=== PATIENT | male | born 1960 | race Caucasian/White ===

== ENCOUNTER 2023-04-06 15:18 | Outpatient (CLI) | payer BC ==
--- NOTE | 2023-04-06 20:05 | XRAY Report ---
PROCEDURE: Foot 3 View LT INDICATIONS: LEFT FOOT PAIN TECHNIQUE: 3 views of the foot were acquired. COMPARISON: None. FINDINGS: Bones: No acute fractures or dislocations. No suspicious bony lesions. Scattered degenerative bautista nges are seen at the interphalangeal joints of the toes. Soft tissues: No suspicious soft tissue calcifications or masses. IMPRESSION: No acute osseous abnormality. If symptoms persist or there is continued clinical concern, further anayeli luation with MRI or CT may be helpful. Reviewed by: Hector Barron MD on 04/06/2023 8:04 PM PST Approved by: Hector Barron MD on 04/06/2023 8:04 PM PST Station ID: [id number]
--- NOTE | 2023-04-06 20:08 | XRAY Report ---
PROCEDURE: Ankle 3 View LT INDICATIONS: LEFT ANKLE PAIN TECHNIQUE: 3 views of the ankle were acquired. COMPARISON: None. FINDINGS: Bones: Subtle subchondral lucency at the medial talar dome may represent degenerative subchondral cy stic changes or a likely chronic osteochondral lesion. No suspicious bony lesions. Small posterior calcaneal enthesophyte. Soft tissues: No suspicious soft tissue calcifications. IMPRESSION: Suspected chronic osteochondral lesion at the medial talar dome. No acute osseous abnormality. MRI co uld be performed for further evaluation if indicated clinically. Reviewed by: Hector Barron MD on 04/06/2023 8:07 PM PST Approved by: Hector Barron MD on 04/06/2023 8:07 PM PST Station ID: [id number]
== END 2023-04-06 15:19 | disposition home or self-care (01) ==
LOC: DI 15:18
PROVIDERS: ATTEND Podiatrist
DX: M79.672 Pain in left foot (principal); M25.572 Pain in left ankle and joints of left foot

== ENCOUNTER 2023-05-10 10:14 | Outpatient (CLI) | payer BC ==
--- NOTE | 2023-05-10 16:35 | MRI Report ---
PROCEDURE: ANKLE WO - LT INDICATIONS: LEFT ANKLE PAIN TECHNIQUE: Noncontrast sagittal T1 spin echo and T2 fast spin echo with fat saturation, axial proton density fas t spin echo and T2 fast spin echo with fat saturation, coronal T1 spin echo and T2 fast spin echo wit h fat saturation through the ankle/hindfoot. COMPARISON: Ankle radiograph dated 04/06/2023. FINDINGS: Image quality: Excellent. Bones and joints: There is no significant joint effusion. No intra-articular loose bodies. Subcortica l cystic areas are noted involving medial weightbearing portion of talar dome with surrounding edema consistent with a osteochondral injuries measures up to 5 x 7 x 12 mm in size. No other area of abnor mal marrow signal. Mild midfoot and hindfoot joint osteoarthritic changes are seen. Medial structures: The posterior tibialis tendon is thickened with fluid distending tendon sheath at the level of mid to distal talus and talonavicular joint. The flexor digitorum longus, and flexor machuca llucis longus tendons are intact. The posterior tibial neurovascular bundle appears normal within th e tarsal tunnel, without extrinsic mass effect. The deltoid ligament and spring ligament are mildly thickened. Lateral structures: The anterior talofibular, calcaneofibular, and posterior talofibular ligaments a ppear mildly thickened with intrasubstance T2 hyperintense signal. More superiorly, the anterior and posterior tibiofibular ligaments appear normal, as is the intermalleolar ligament. The tibiofibular syndesmosis is normal in width at 2 mm or less. The peroneus brevis tendon is intact. The peroneus longus tendon is thickened with small amount of fluid distending tendon sheath at the level of latera l malleolus tip extending to the level of calcaneocuboid joint. The sinus tarsi demonstrates normal f atty signal, without edema, fibrosis, or cyst formation. Visualized sinus tarsi components (cervical ligament, interosseous talocalcaneal ligament, roots of the inferior extensor retinaculum) appear no rmal. Anterior structures: The tibialis anterior, extensor hallucis longus, and extensor digitorum longus tendons appear intact. Posterior and plantar structures: Achilles tendon is intact. Medial and lateral bands of the planta r fascia are of normal thickness. No abductor digiti quinti muscle atrophy to suggest Segura neuropa thy. IMPRESSION: 1. Mild midfoot and hindfoot joint osteoarthritis. No fracture or dislocation. Osteochondral injuries are noted involving medial weightbearing portion of talar dome. No significant joint effusion. 2. Low-grade tenosynovitis involving posterior tibialis tendon at the level of mid to distal talus an d talonavicular joint. 3. Low to moderate grade tenosynovitis involving peroneus longus tendon at the level of lateral malle olus tip extending to the level of calcaneocuboid joint. 4. Low-grade medial ankle ligament sprain. 4. Low-grade sprain/intrasubstance partial thickness tear involving anterior and posterior talofibula r ligaments and calcaneofibular ligament. Reviewed by: Kingston Mar MD on 05/10/2023 4:33 PM PST Approved by: Kingston Mar MD on 05/10/2023 4:33 PM PST Station ID: [id number]
== END 2023-05-10 10:15 | disposition home or self-care (01) ==
LOC: DI 10:14
PROVIDERS: ATTEND Podiatrist
DX: M93.272 Osteochondritis dissecans, left ankle and joints of left foot (principal); M19.072 Primary osteoarthritis, left ankle and foot; M65.9 Synovitis and tenosynovitis, unspecified; S93.492A Sprain of other ligament of left ankle, initial encounter; S93.412A Sprain of calcaneofibular ligament of left ankle, initial encounter

== ENCOUNTER 2024-10-30 13:14 | Observation (INO) ==
[2024-10-30 14:40] LABS: BASOPHILS % (AUTO) 0.3 %; EOSINOPHILS % (AUTO) 0.3 %; HCT - HEMATOCRIT 44.7 % (42.0-52.0); HGB - HEMOGLOBIN 15.9 g/dL (14.0-18.0); LYMPHOCYTES % (AUTO) 10.9 %; MEAN CORPUSCULAR HGB CONC 35.6 g/dL (32.0-36.0); MEAN CORPUSCULAR VOLUME 78.8 fL (80.0-94.0); MEAN PLATELET VOLUME 8.1 fL (7.4-11.4); MONOCYTES % (AUTO) 10.1 %; NEUTROPHILS % (AUTO) 77.2 %; PLT - PLATELET COUNT 451 10^3/uL (130-450); RED BLOOD COUNT 5.67 10^6/uL (4.70-6.10); WHITE BLOOD COUNT 14.4 x10^3/uL (4.8-10.8)
[2024-10-30 14:48] LABS: ABNORMAL LYMPHS % (MANUAL) 0 %; BAND NEUTROPHILS % (MANUAL) 0 %
[2024-10-30 14:53] LABS: ALBUMIN 4.7 g/dL (3.2-5.5); ALBUMIN/GLOBULIN RATIO 1.6 (1.0-2.2); BILIRUBIN,TOTAL 0.7 mg/dL (0.2-1.0); CALCIUM 9.3 mg/dL (8.5-10.3); POTASSIUM 4.1 mmol/L (3.5-4.5); TOTAL PROTEIN 7.7 g/dL (6.4-8.9)
[2024-10-30 15:05] LABS: DIFFERENTIAL COMMENT MANUAL DIFFERENTIAL; LYMPHOCYTES # (MANUAL) 1.9 10^3/uL (1.5-3.5); LYMPHOCYTES % (MANUAL) 11 %; MONOCYTES # (MANUAL) 1.4 10^3/uL (0.0-1.0); NEUTROPHILS # (MANUAL) 11.1 10^3/uL (1.5-6.6); PLATELET ESTIMATE, MANUAL NORMAL (130-450,000) (NORMAL); PLATELET MORPHOLOGY NORMAL APPEARANCE (NORMAL); RBC MORPHOLOGY (MULTIPLE) NORMAL APPEARANCE (NORMAL); REACTIVE LYMPHS % (MANUAL) 2 %
--- NOTE | 2024-10-30 15:55 | ED Physician Documentation ---
PD HPI NVD Stated complaint Stated Complaint: DIARRHEA Chief complaint Chief Complaint: Abd Pain History obtained from History obtained from: Patient and Family History of Present Illness Timing - onset: How many weeks ago (2) Timing - duration: Weeks (2) Timing - details: Abrupt onset and Still present Associated symptoms: Abdominal pain (intermittent cramping), Loss of appetite and Weight loss; No Fever, Near syncope / syncope or Dysuria Contributing factors: Other (chemotherapy 3 weeks ago (immunologic).); No Sick contact Similar symptoms before: Has not had sx before Recently seen: Clinic (chemotherapy 2 weeks ago, third dose of it (q month) without similar symptoms in prior doses. ) Meds/Allgy Home Medications Ambulatory Orders Medication Instructions Recorded Confirmed acetaminophen 500 mg tablet 500 mg PO PRN 10/31/2404/16 (Tylenol Extra Strength) albuterol sulfate 90 mcg/actuation 2 inh inhalation Q4 -6H PRN 10/31/24 10/31/24 aerosol inhaler (Ventolin HFA) shortness of breath or wheezing beclomethasone dipropionate 40 1 inh inhalation BID WA N shortness 10/31/24 10/31/24 mcg/actuation HFA breath activated of breath or wheezi ng aerosol (Qvar RediHaler) diphenoxylate-atropine 2.5 1 tab PO QID PRN diarrhea 0 10/31/24 10/31/24 mg-0.025 mg tablet fluticasone propionate 50 4 spray intranasal DAILY 04/1610/31/24 mcg/actuation nasal spray,suspension gabapentin 300 mg capsule 300 mg PO QPM 10/31/2410/31 lisinopril 20 1 tab PO BID 10/31/24 mg-hydrochlorothiazide 12.5 mg tablet multivitamin 1 tab PO BID 10/31/24 omega-3 fatty acids 500 mg PO DAILY 10/31/2404/16 ondansetron 4 mg disintegrating 4 - 8 mg PO Q8H PRN na usea and 10/31/24 10/31/24 tablet vomiting rosuvastatin 10 mg tablet 10 mg PO QPM 10/31/24 tadalafil 2.5 mg tablet 2.5 mg PO DAILY PRN sexual a ctivity 10/31/24 10/31/24 vitamin K2 40 mcg tablet 40 mcg PO DAILY 10/31/2404/16 Allergies Allergies Allergy/AdvReac Type Severity Reaction Status Date / Time atenolol Allergy Intermediate Respiratory Verified 10/31/24 11:28 Gadolinium-Containing Allergy Intermediate Hives Verified 10/31/24 11:28 Contrast Medi Sulfa (Sulfonamide Allergy Mild Rash Verified 10/31/24 11:28 Antibiotics) PFSH Active Problems All Active Problems (Updated 10/30/24 @ 19:19 by Araceli Bishop RN) Diarrhea (Acute) Acute hyponatremia (Acute) Medical History Medical History (Updated 10/30/24 @ 19:19 by Araceli Bishop RN) History of hypertension Melanoma Social History Social History (Updated 10/30/24 @ 19:20 by Araceli Bishop RN) Smoking Status: Former smoker If you are a former smoker, when did you quit? (Date/Year): 1982 Number of Years Smoked: 3 Do you dip or chew tobacco?: No Do you vape?: No Smoking Status Details: quit 1983 Relationship: Level: Independent Do you feel safe in your home environment?: Yes Suffered physical, verbal, emotional, or financial abuse?: No Exam Exam Vital Signs: Vital Signs x48h Temp Pulse Resp BP Pulse Ox 10/30/24 13:37 36.8 C 110 H 16 115/84 97 Constitutional normal general appearance, no apparent distress and average body habitus Neck/C-Spine supple and no meningeal signs Lymph no lymphadenopathy noted Respiratory breath sounds equal bilaterally and normal respiratory effort Cardiovascular normal heart rate noted, regular rhythm noted and no edema Gastrointestinal abdomen soft to palpation, tender to palpation (mild), (LLQ) and (periumbilical), nontender to percussion, nondistended and abnormal bowel sounds noted (hyperactive bowel sounds) Extremities normal to inspection, normal to palpation and no tenderness Neurology no focal motor deficit noted, no sensory deficits noted, speech normal, coordination normal and GCS 15 Psychiatry thought process abnormality noted (somewhat sluggish but still coherent and appropriate. ) and affect normal Results Vitals Vitals: Oxygen O2 Source Room air Labs Labs: Laboratory Tests 10/30/24 10/30/24 10/30/24 14:35 16:40 16:50 WBC 14.4 H RBC 5.67 Hgb 15.9 Hct 44.7 MCV 78.8 L MCH 28.0 MCHC 35.6 RDW 13.0 Plt Count 451 H MPV 8.1 Neut # (Auto) Not Reportable Lymph # (Auto) Not Reportable Phillips # (Auto) Not Reportable Eos # (Auto) Not Reportable Baso # (Auto) Not Reportable Absolute Nucleated RBC Not Reportable Total Counted 100 Band Neuts % (Manual) 0 Reactive Lymphs % (Man) 2 Abnorm Lymph % (Manual) 0 Nucleated RBC % Not Reportable Neutrophils # (Manual) 11.1 H Lymphocytes # (Manual) 1.9 Monocytes # (Manual) 1.4 H Eosinophils # (Manual) 0.0 Basophils # (Manual) 0.0 Differential Comment MANUAL DIFFERENTIAL Platelet Estimate NORMAL (130-450,000) Platelet Morphology NORMAL APPEARANCE RBC Morph Micro Appear NORMAL APPEARANCE Sodium 123 L Potassium 4.1 Chloride 93 L Carbon Dioxide 19 L Anion Gap 11.0 BUN 38 H Creatinine 1.0 Estimated GFR (MDRD) 75 L Glucose 161 H Lactic Acid Calcium 9.3 Phosphorus 4.8 Magnesium 2.2 Total Bilirubin 0.7 AST 15 ALT 21 Alkaline Phosphatase 64 Total Protein 7.7 Albumin 4.7 Globulin 3.0 Albumin/Globulin Ratio 1.6 Lipase 279 H Urine Color Urine Clarity Urine pH Ur Specific Roby Urine Protein Urine Glucose (UA) Urine Ketones Urine Occult Blood Urine Nitrite Urine Bilirubin Urine Urobilinogen Ur Leukocyte Esterase Urine RBC Urine WBC Urine WBC Clumps Ur Squamous Epith Cells Urine Bacteria Urine Casts Ur Microscopic Review Urine Culture Comments Stl C. cayetanensis PCR Not Detected Stool Rotavirus A PCR Not Detected Stl Adenov F 40/41 PCR Not Detected Stool Astrovirus (PCR) Not Detected Stool Campylobacter PCR Not Detected Stl C. diff Tox B Gene NEGATIVE Stl C. diff Tox A/B PCR Not Detected Stool Cryptosporidium PCR Not Detected Stl Sh Tox Pr E STEC PCR Not Detected Stool E coli O157 PCR Not applicable Stl Enterotoxigenic E PCR Not Detected Stool EPEC (PCR) Not Detected Stl E. histolytica PCR Not Detected Stool Giardia Lamblia PCR Not Detected Stl P. shigelloides PCR Not Detected Stool Salmonella PCR Not Detected Stool Sapovirus (PCR) Not Detected Stl Shigella/EIEC PCR Not Detected St Y.enterocolitica PCR Not Detected Stool Vibrio (PCR) Not Detected Stl Vibrio cholerae PCR Not Detected Stl Enteroaggr Ecoli PCR Not Detected Stl Norovirus GI/GII PCR Not Detected 10/30/24 10/30/24 19:10 20:39 WBC RBC Hgb Hct MCV MCH MCHC RDW Plt Count MPV Neut # (Auto) Lymph # (Auto) Phillips # (Auto) Eos # (Auto) Baso # (Auto) Absolute Nucleated RBC Total Counted Band Neuts % (Manual) Reactive Lymphs % (Man) Abnorm Lymph % (Manual) Nucleated RBC % Neutrophils # (Manual) Lymphocytes # (Manual) Monocytes # (Manual) Eosinophils # (Manual) Basophils # (Manual) Differential Comment Platelet Estimate Platelet Morphology RBC Morph Micro Appear Sodium Potassium Chloride Carbon Dioxide Anion Gap BUN Creatinine Estimated GFR (MDRD) Glucose Lactic Acid 1.5 Calcium Phosphorus Magnesium Total Bilirubin AST ALT Alkaline Phosphatase Total Protein Albumin Globulin Albumin/Globulin Ratio Lipase Urine Color DARK YELLOW Urine Clarity CLEAR Urine pH 6.0 Ur Specific Roby 1.025 Urine Protein 30 H Urine Glucose (UA) NEGATIVE Urine Ketones 15 H Urine Occult Blood NEGATIVE Urine Nitrite NEGATIVE Urine Bilirubin SMALL H Urine Urobilinogen 0.2 (NORMAL) Ur Leukocyte Esterase NEGATIVE Urine RBC None Seen Urine WBC 6-10 H Urine WBC Clumps PRESENT Ur Squamous Epith Cells FEW Squamous Urine Bacteria Rare Urine Casts 26-50 Hyaline Casts Ur Microscopic Review INDICATED Urine Culture Comments NOT INDICATED Stl C. cayetanensis PCR Stool Rotavirus A PCR Stl Adenov F 40/41 PCR Stool Astrovirus (PCR) Stool Campylobacter PCR Stl C. diff Tox B Gene Stl C. diff Tox A/B PCR Stool Cryptosporidium PCR Stl Sh Tox Pr E STEC PCR Stool E coli O157 PCR Stl Enterotoxigenic E PCR Stool EPEC (PCR) Stl E. histolytica PCR Stool Giardia Lamblia PCR Stl P. shigelloides PCR Stool Salmonella PCR Stool Sapovirus (PCR) Stl Shigella/EIEC PCR St Y.enterocolitica PCR Stool Vibrio (PCR) Stl Vibrio cholerae PCR Stl Enteroaggr Ecoli PCR Stl Norovirus GI/GII PCR Rads (name of study) abd pelvic/CT: Relevant Findings:: Final report received Interpretation: EXAM: [id number] CT/ABPEWO ([id number]) PROCEDURE: CT Abdomen/Pelvis WO INDICATIONS: abd cramping and diarrhea several days TECHNIQUE: A CT scan of the abdomen and pelvis was performed without the use of intravenous contrast. Images were recorded and evaluated at appropriate window settings. Reformats: coronal and sagittal. For radiation dose reduction, the following was used: automated exposure control, adjustment of mA and/or kV according to patient size. COMPARISON: None. Evaluation of the solid rectum organs is limited without IV contrast. FINDINGS: Image quality: Diagnostic. Lower chest: Several small pulmonary nodules. For example: -Right lower lobe 0.7 cm, (8/). -Left lower lobe 0.8 cm (/). No pleural effusion. Liver: No contour-deforming mass. Gallbladder: Distended. No calcified gallstones. No pericholecystic fluid seen. Biliary tree: No intrahepatic or extrahepatic dilation, accounting for age. Spleen: No splenomegaly. Pancreas: No pancreatic ductal dilation. No peripancreatic fluid collection. Adrenals: No adrenal nodule. Kidneys and ureters: No hydronephrosis. No kidney stones. No contour-deforming mass. Stomach, bowel and peritoneum: No gastric or small bowel dilation. No abnormal wall thickening. No pathologic free fluid. Liquid stool contents in the rectum and colon. The appendix is at the upper limits of normal. No periappendiceal inflammatory change. Lymph nodes: No central or retroperitoneal adenopathy. Vessels: No infrarenal aortic aneurysm. Mild calcified plaque. Reproductive organs: Unremarkable. Bladder: No abnormal bladder wall thickening. No calcified bladder stones. Pelvic lymph nodes: No adenopathy by size criteria. Bones: No aggressive osseous abnormality. Other: No significant ventral or inguinal hernia. IMPRESSION: 1. Liquid stool contents in the colon and rectum. This suggests diarrhea. 2. No small bowel obstruction. No free fluid or free air. 3. No kidney stones. No hydronephrosis. 4. Distended gallbladder. Reviewed by: Eddie Willson MD on 10/30/2024 7:48 PM PDT PD Medical Decision Making ED course Complexity details: reviewed results (sodium 123. CT showing no focal process (water in colon/intestines c/w diarrhea). ), considered differential (profuse diarrhea, with lightheaded and weak, some sluggish thought process. Check lytes, renal function, give IV fluids and antidiarrheals (has tried imodium and a day of lomotil without improvement). check c diff and PCR stool testing. ), d/w patient and d/w client development consultant (hospitalist team) ED course: has had diarrhea profusely with trying to maintain hydration with electrolytes and water. Cramping abd pain. post imunologic chemotherapy for his cancer 2 weeks ago. COuld be inflammatory effect of that causing diarrhea, versus infectious. Will check c diff and PCR stool testing. Meanwhile his fluid balance is off with lightehaded and weakness, and lytes are off with very low sodium 123, with last in his MyChart records from [facility] being 139 three weeks ago. Discharge Plan Discharge Patient Disposition: 67 [facility] DC/Xfer Condition: Stable Clinical Impression: Acute hyponatremia, Diarrhea Interventions: ED Admission Assessment Last Done: 10/30/24 22:24
[2024-10-30] MEDS ORDERED: iohexoL-300 100 ML VIAL ONE (16:38)
[2024-10-30 16:48] LABS: MAGNESIUM 2.2 mg/dL (1.7-2.3); PHOSPHORUS 4.8 mg/dL (2.5-5.0)
[2024-10-30 19:31] LABS: BILIRUBIN,URINE SMALL (NEGATIVE); GLUCOSE, URINE (UA) NEGATIVE (NEGATIVE); KETONES,URINE (UA) 15 mg/dL (NEGATIVE); LEUKOCYTE ESTERASE, URINE NEGATIVE (NEGATIVE); NITRITE,URINE NEGATIVE (NEGATIVE); OCCULT BLOOD,URINE NEGATIVE (NEGATIVE); PROTEIN,URINE 30 mg/dL (NEGATIVE); UROBILINOGEN,URINE 0.2 (NORMAL) E.U./dL (NORMAL)
[2024-10-30 19:36] LABS: CLARITY,URINE CLEAR (CLEAR)
[2024-10-30 19:43] LABS: BACTERIA,URINE Rare /HPF (None Seen); CASTS, URINE 26-50 Hyaline Casts /LPF; RBC,URINE None Seen /HPF (0-5); SQUAMOUS EPITHELIAL CELL,UR FEW Squamous (<= Few); WBC CLUMPS,URINE PRESENT
--- NOTE | 2024-10-30 19:50 | CT Report ---
PROCEDURE: CT Abdomen/Pelvis WO INDICATIONS: abd cramping and diarrhea several days TECHNIQUE: A CT scan of the abdomen and pelvis was performed without the use of intravenous contrast. Images were recorded and evaluated at appropriate window settings. Reformats: coronal and sagittal. For radiation dose reduction, the following was used: automated exposure control, adjustment of mA and/or kV according to patient size. COMPARISON: None. Evaluation of the solid rectum organs is limited without IV contrast. FINDINGS: Image quality: Diagnostic. Lower chest: Several small pulmonary nodules. For example: -Right lower lobe 0.7 cm, (8/26). -Left lower lobe 0.8 cm (8/). No pleural effusion. Liver: No contour-deforming mass. Gallbladder: Distended. No calcified gallstones. No pericholecystic fluid seen. Biliary tree: No intrahepatic or extrahepatic dilation, accounting for age. Spleen: No splenomegaly. Pancreas: No pancreatic ductal dilation. No peripancreatic fluid collection. Adrenals: No adrenal nodule. Kidneys and ureters: No hydronephrosis. No kidney stones. No contour-deforming mass. Stomach, bowel and peritoneum: No gastric or small bowel dilation. No abnormal wall thickening. No pathologic free fluid. Liquid stool contents in the rectum and colon. The appendix is at the upper limits of normal. No periappendiceal inflammatory change. Lymph nodes: No central or retroperitoneal adenopathy. Vessels: No infrarenal aortic aneurysm. Mild calcified plaque. Reproductive organs: Unremarkable. Bladder: No abnormal bladder wall thickening. No calcified bladder stones. Pelvic lymph nodes: No adenopathy by size criteria. Bones: No aggressive osseous abnormality. Other: No significant ventral or inguinal hernia. IMPRESSION: 1. Liquid stool contents in the colon and rectum. This suggests diarrhea. 2. No small bowel obstruction. No free fluid or free air. 3. No kidney stones. No hydronephrosis. 4. Distended gallbladder. Reviewed by: Eddie Willson MD on 10/30/2024 7:48 PM PDT Approved by: Eddie Willson MD on 10/30/2024 7:48 PM PDT Station ID: [id number]
[2024-10-30] MEDS: SODIUM CHLORIDE 0.9% 1,000 ML IV STA (19:56)
[2024-10-30] MEDS ORDERED: ONDANSETRON ODT 4 MG TABLET TL PRN (20:52)
[2024-10-30] MEDS ORDERED: SODIUM CHLORIDE FLUSH 0.9% 10 ML SYRINGE IVP PRN (20:52)
[2024-10-30] MEDS ORDERED: ONDANSETRON 4 MG/2 ML VIAL IVP PRN (20:52)
--- NOTE | 2024-10-30 21:01 | HISTORY & PHYSICAL EXAMINATION ---
Chief Complaint Chief Complaint Chief Complaint: Weakness, diarrhea History of Present Illness Admitted From Admitted From:: Home with History Obtained From History obtained from: Patient interview History of Present Illness HPI Comment/Other: 64-year-old male with history of melanoma undergoing immunologic therapy with last dose 3 weeks ago presents with diarrhea x 2 weeks. He reports intermittent cramping and greater than 10 pound weight loss in the past few weeks. He denies nausea/vomiting. No fevers, chills, dyspnea, syncope. Does report generalized weakness. In the ER, lab work was significant for sodium of 123, WBC 14.4, lipase 279. UA unremarkable, C. difficile toxin negative. CT abdomen/pelvis was performed which showed diarrhea, but no small bowel obstruction, no free fluid, no free air, kidney stones, hydronephrosis. It did show a distended gallbladder, But does not specify cholecystitis. No pancreatic ductal dilation and no peripancreatic fluid collection. Patient denies right upper quadrant abdominal pain. Hospitalist was contacted for admission for hyponatremia secondary to diarrhea Meds/Allgy Allergies Allergies Allergy/AdvReac Type Severity Reaction Status Date / Time atenolol Allergy Intermediate Respiratory Verified 10/30/24 13:37 Gadolinium-Containing Allergy Mild Rash Verified 10/30/24 13:37 Contrast Medi Sulfa (Sulfonamide Allergy Mild Rash Verified 10/30/24 13:37 Antibiotics) PFSH Active Problems All Active Problems (Updated 10/30/24 @ 19:19 by Araceli Bishop RN) Diarrhea (Acute) Acute hyponatremia (Acute) Medical History Medical History (Updated 10/30/24 @ 19:19 by Araceli Bishop RN) History of hypertension Melanoma Social History Social History (Updated 10/30/24 @ 19:20 by Araceli Bishop RN) Smoking Status: Former smoker If you are a former smoker, when did you quit? (Date/Year): 1982 Number of Years Smoked: 3 Relationship: Do you feel safe in your home environment?: Yes Suffered physical, verbal, emotional, or financial abuse?: No POLST Patient has POLST: No Review of Systems Status of ROS: 10 or more systems reviewed and unremarkable except as noted in history and below Constitutional Denies: Fever or Chills Cardiovascular Denies: Irregular heart rate, chest pain, palpitations or shortness of breath with exertion Respiratory Denies: Shortness of breath Gastrointestinal Reports: Abdominal pain (Occasional cramping) and Diarrhea; Denies: Nausea or Vomiting Genitourinary Denies: Painful urination Neurological Reports: General weakness Exam Exam Vital Signs: Vital Signs x48h Temp Pulse Resp BP Pulse Ox 10/30/24 19:55 105 H 16 119/85 97 10/30/24 19:13 103 H 123/82 98 10/30/24 17:00 100 16 124/80 98 10/30/24 16:15 104 H 15 127/88 95 10/30/24 13:37 36.8 C 110 H 16 115/84 97 Constitutional normal general appearance and no apparent distress HENMT normocephalic and head/scalp atraumatic Eyes PERRL Neck/C-Spine visual inspection normal Lymph no lymphadenopathy noted Chest inspection of chest normal Respiratory breath sounds equal bilaterally Cardiovascular heart rate abnormal (tachycardic) and regular rhythm noted Gastrointestinal abdomen normal to inspection, abdomen soft to palpation, nontender to palpation and abnormal bowel sounds noted (hyperactive bowel sounds) Extremities normal to inspection Neurology GCS 15 Psychiatry oriented x3 Skin skin color normal Conclusion/Plan Problem List (1) Acute hyponatremia: Plan: His hyponatremia is likely secondary to diarrhea/GI losses 1 L NS given by ER provider Continue NS at 100 Sodium checks every 4 hours Urine specific gravity W DL (2) Diarrhea: Plan: He has been having diarrhea for 2 weeks, with intermittent abdominal cramping. This is not worsened or improved with any changes in his diet. He reports he has been on a brat diet to see if it slows down the diarrhea. Of note, he is on immunologic therapy with last dose 3 weeks ago C. difficile test was negative in the ER Stool PCR panel in process He had an elevated lipase, but CT abdomen did not show any concern for pancreatitis CT shows distended gallbladder. He has no right upper quadrant tenderness. I will get a abdominal ultrasound CT without concern for diverticulitis Supportive care with IV fluids until PCR panel has resulted (3) Melanoma: Plan: Receives immunologic therapy from [facility] Will try and obtain records from them His immunologic regimen is likely what is left him susceptible to diarrhea Plan Placed in observation Full code His is a surrogate decision-maker Lab Results Lab results reviewed: Yes 10/30/24 14:35 10/30/24 14:35 Diagnostic Imaging Results Diagnostic Imaging Results: positive Final report reviewed Diagnostic Imaging Results Comments: CT abdomen/Pelvis Core Measures Anticipated LOS I expect patient to be DC'd or transferred within 96 hours.: Yes DVT/VTE - Prophylaxis VTE/DVT Prophylaxis med ordered at admit?: Yes
[2024-10-30] MEDS: SODIUM CHLORIDE 0.9% 1,000 ML IV SCH (22:54)
[2024-10-30] MEDS: ACETAMINOPHEN 325 MG TABLET PO PRN (23:35)
[2024-10-30] MEDS: GABAPENTIN 300 MG CAPSULE PO SCH (23:35)
[2024-10-30] MEDS: SODIUM CHLORIDE FLUSH 0.9% 10 ML SYRINGE IVP SCH (23:50)
[2024-10-31 04:24] LABS: BASOPHILS % (AUTO) 0.3 %; EOSINOPHILS % (AUTO) 0.7 %; HGB - HEMOGLOBIN 14.6 g/dL (14.0-18.0); LYMPHOCYTES % (AUTO) 15.3 %; MEAN CORPUSCULAR HEMOGLOBIN 27.5 pg (27.0-31.0); MEAN CORPUSCULAR VOLUME 81.1 fL (80.0-94.0); MEAN PLATELET VOLUME 8.3 fL (7.4-11.4); MONOCYTES % (AUTO) 14.5 %; PLT - PLATELET COUNT 355 10^3/uL (130-450); RED CELL DISTRIBUTION WIDTH 13.1 % (12.0-15.0); WHITE BLOOD COUNT 11.7 x10^3/uL (4.8-10.8)
[2024-10-31 04:35] LABS: ABNORMAL LYMPHS % (MANUAL) 0 %
[2024-10-31 04:39] LABS: CALCIUM 8.5 mg/dL (8.5-10.3); CREATININE 0.7 mg/dL (0.6-1.3); POTASSIUM 3.7 mmol/L (3.5-4.5)
[2024-10-31 05:09] LABS: ADENOVIRUS F 40/41 Not Detected (Not Detected); ASTROVIRUS Not Detected (Not Detected); C DIFFICILE TOXIN A/B Not Detected (Not Detected); CAMPYLOBACTER Not Detected (Not Detected); CRYPTOSPORIDIUM Not Detected (Not Detected); CYCLOSPORA CAYETANENSIS Not Detected (Not Detected); ENTAMOEBA HISTOLYTICA Not Detected (Not Detected); ENTEROAGGREGATIVE E COLI Not Detected (Not Detected); ENTEROPATHOGENIC E COLI Not Detected (Not Detected); ENTEROTOXIGENIC E COLI Not Detected (Not Detected); GIARDIA LAMBLIA Not Detected (Not Detected); NOROVIRUS GI/GII Not Detected (Not Detected); PLESIOMONAS SHIGELLOIDES Not Detected (Not Detected); ROTAVIRUS A Not Detected (Not Detected); SALMONELLA Not Detected (Not Detected); SAPOVIRUS Not Detected (Not Detected); SHIGA-TOXIN-PRODUCING E COLI Not Detected (Not Detected); SHIGELLA/ENTEROINVASIVE E COLI Not Detected (Not Detected); VIBRIO Not Detected (Not Detected); VIBRIO CHOLERAE Not Detected (Not Detected); YERSINIA ENTEROCOLITICA Not Detected (Not Detected)
[2024-10-31 06:11] LABS: BAND NEUTROPHILS % (MANUAL) 14 %; DIFFERENTIAL COMMENT MANUAL DIFFERENTIAL; LYMPHOCYTES # (MANUAL) 1.8 10^3/uL (1.5-3.5); LYMPHOCYTES % (MANUAL) 15 %; MONOCYTES # (MANUAL) 0.6 10^3/uL (0.0-1.0); NEUTROPHILS # (MANUAL) 9.4 10^3/uL (1.5-6.6); PLATELET ESTIMATE, MANUAL NORMAL (130-450,000) (NORMAL); PLATELET MORPHOLOGY NORMAL APPEARANCE (NORMAL); RBC MORPHOLOGY (MULTIPLE) NORMAL APPEARANCE (NORMAL); WBC MORPHOLOGY (MULTIPLE) NORMAL APPEARANCE (NORMAL)
[2024-10-31] MEDS: ENOXAPARIN 40 MG/0.4 ML SYRINGE SUBQ SCH (09:12)
[2024-10-31] MEDS: SODIUM CHLORIDE 1 GM TABLET PO SCH (09:49)
--- NOTE | 2024-10-31 11:46 | PHARMACY PROGRESS NOTE ---
Best Possible Medication History Admit Date and Time: 10/30/242050 Home Medications Medication Instructions Recorded Confirmed Type acetaminophen 500 mg tablet 500 mg PO PRN 10/31/2404/16 History (Tylenol Extra Strength) albuterol sulfate 90 mcg/actuation 2 inh inhalation Q4 -6H PRN 10/31/24 10/31/24 History aerosol inhaler (Ventolin HFA) shortness of breath or wheezing beclomethasone dipropionate [address] N shortness 10/31/24 10/31/24 History mcg/actuation HFA breath activated of breath or wheezi ng aerosol (Qvar RediHaler) diphenoxylate-atropine 2.5 1 tab PO QID PRN diarrhea 0 10/31/24 10/31/24 History mg-0.025 mg tablet fluticasone propionate 50 4 spray intranasal DAILY 04/1610/31/24 History mcg/actuation nasal spray,suspension gabapentin 300 mg capsule 300 mg PO QPM 10/31/2410/31 History lisinopril 20 1 tab PO BID 10/31/24 History mg-hydrochlorothiazide 12.5 mg tablet multivitamin 1 tab PO BID 10/31/24 History omega-3 fatty acids 500 mg PO DAILY 10/31/2404/16 History ondansetron 4 mg disintegrating 4 - 8 mg PO Q8H PRN na usea and 10/31/24 10/31/24 History tablet vomiting rosuvastatin 10 mg tablet 10 mg PO QPM 10/31/24 History tadalafil 2.5 mg tablet 2.5 mg PO DAILY PRN sexual a ctivity 10/31/24 10/31/24 History vitamin K2 40 mcg tablet 40 mcg PO DAILY 10/31/2404/16 History Processed by: Pharmacy (Completed by manager clinical pharmacyKhushbu) Medication History completed: Yes Patient Interview: Completed Secondary Source(s): Insurance records [facility] Statement: As the person ultimately responsible for medication therapy, providers are able to order a medication from an existing home medication list in [facility] via the "Reconcile Routine" prior to Confirmation of that medication by director decision support. Such practice is discouraged except when the physician, in their clinical judgment, deems that a medical need exists for a medication without regard to previous use.
[2024-10-31] MEDS ORDERED: DIPHENOX/ATROPINE 2.5/0.025 MG TABLET PO PRN (14:09)
--- NOTE | 2024-10-31 14:19 | PROVIDER PROGRESS NOTE ---
Subjective Prog Note Date Prog Note Date: 10/31/24 Subjective Pt reports feeling: Improved Current Medications Current Medications Current Medications: Current Medications Generic Name Dose Route Start Last Admin Trade Name Freq PRN Reason Stop Dose Admin Acetaminophen 650 mg 10/30/24 20:52 10/30/24 23:35 Acetaminophen 325 Mg Tablet PO 650 mg Q4HR PRN Administration Pain 1 to 4, or Fever Diphenoxylate HCl/Atropine 1 tab 10/31/24 14:09 Diphenox/Atropine 2.5/0.025 Mg Tablet PO QID PRN diarrhea Enoxaparin Sodium 40 mg 10/31/24 09:00 10/31/24 09:12 Enoxaparin 40 Mg/0.4 Ml Syringe SUBQ 40 mg DAILY BETHANY Administration Fluticasone Propionate 2 sprays 11/01/24 09:00 Fluticasone Nasal [place] [facility] DAILY BETHANY Gabapentin 300 mg 10/30/24 23:00 10/30/24 23:35 Gabapentin 300 Mg Capsule PO 300 mg QPM BETHANY Administration Sodium Chloride 1,000 mls @ 200 mls/hr 10/30/24 21:00 10/31/24 13:17 Normal Saline 0.9% IV 200 mls/hr .Q5H BETHANY Administration Non-Formulary Medication 1 inh 10/31/24 14:09 Beclomethasone Dipropionate [Qvar Redihaler] INH BID PRN shortness of breath or wheezing Non-Formulary Medication 1 tab 10/31/24 21:00 Lisinopril-Hydrochlorothiazide PO BID BETHANY Non-Formulary Medication 1 tab 10/31/24 21:00 Multivitamin PO BID BETHANY Non-Formulary Medication 10 mg 10/31/24 21:00 Rosuvastatin PO QPM BETHANY Non-Formulary Medication 40 mcg 11/01/24 09:00 Vitamin K2 PO DAILY BETHANY Ondansetron HCl 4 mg 10/30/24 20:52 Ondansetron Odt 4 Mg Tablet TL Q6HR PRN Nausea / Vomiting Ondansetron HCl 4 mg 10/30/24 20:52 Ondansetron 4 Mg/2 Ml Vial IVP Q6HR PRN Nausea / Vomiting Sodium Chloride 10 ml 10/30/24 20:52 Sodium Chloride Flush 0.9% 10 Ml Syringe IVP PRN PRN NEEDED PER PROVIDER ORDERS Sodium Chloride 10 ml 10/31/24 01:00 10/31/24 09:13 Sodium Chloride Flush 0.9% 10 Ml Syringe IVP Not Given 0100,0900,1700 BETHANY Sodium Chloride 2 gm 10/31/24 10:00 10/31/24 09:49 Sodium Chloride 1 Gm Tablet PO 2 gm BID BETHANY Administration Objective Vital Signs/Intake & Output Reviewed Vital Signs: Yes Vital Signs: Vital Signs x48h Temp Pulse Resp BP Pulse Ox 10/31/24 13:00 36.9 C 85 18 149/83 H 98 10/31/24 08:21 36.7 C 92 18 130/82 98 Intake & Output: Intake & Output 10/28/24 10/29/24 10/30/24 10/31/24 23:59 23:59 23:59 23:59 Intake Total 642 / 642 1647 / 1647 Balance 642 / 642 1647 / 1647 Weight (kg) 89 kg Objective General Appearance: positive No acute distress and Alert Eyes Bilateral: positive Normal inspection, PERRL and Conjunctivae nml ENT: positive ENT inspection nml Neck: positive Nml inspection Respiratory: positive Chest non-tender and No respiratory distress Cardiovascular: positive Regular rate & rhythm Abdomen: positive Non-tender Skin: positive Color nml Extremities: positive Non-tender Neurologic/Psychiatric: positive Oriented x3 Lab Results 10/31/24 04:08 10/31/24 13:10 Other Labs: Lab Results x24hrs 10/31/24 10/31/24 10/31/24 Range/Units 13:10 09:22 04:08 WBC 11.7 H (4.8-10.8) x10^3/uL RBC 5.30 (4.70-6.10) 10^6/uL Hgb 14.6 (14.0-18.0) g/dL Hct 43.0 (42.0-52.0) % MCV 81.1 (80.0-94.0) fL MCH 27.5 (27.0-31.0) pg MCHC 34.0 (32.0-36.0) g/dL RDW 13.1 (12.0-15.0) % Plt Count 355 (130-450) 10^3/uL MPV 8.3 (7.4-11.4) fL Neut # (Auto) Not Reportable Lymph # (Auto) Not Reportable Kendall # (Auto) Not Reportable Eos # (Auto) Not Reportable Baso # (Auto) Not Reportable Absolute Nucleated RBC Not Reportable Total Counted 100 Band Neuts % (Manual) 14 H (0 - 10) % Reactive Lymphs % (Man) % Abnorm Lymph % (Manual) 0 % Nucleated RBC % Not Reportable Neutrophils # (Manual) 9.4 H (1.5-6.6) 10^3/uL Lymphocytes # (Manual) 1.8 (1.5-3.5) 10^3/uL Monocytes # (Manual) 0.6 (0.0-1.0) 10^3/uL Eosinophils # (Manual) 0.0 (0-0.7) 10^3/uL Basophils # (Manual) 0.0 (0-0.1) 10^3/uL Differential Comment MANUAL DIFFERENTIAL WBC Morphology NORMAL APPEARANCE (NORMAL) Platelet Estimate NORMAL (130-450,000) (NORMAL) Platelet Morphology NORMAL APPEARANCE (NORMAL) RBC Morph Micro Appear NORMAL APPEARANCE (NORMAL) Sodium 126 L 125 L 124 L (135-145) mmol/L Potassium 3.7 (3.5-4.5) mmol/L Chloride 96 L (101-111) mmol/L Carbon Dioxide 16 L (21-32) mmol/L Anion Gap 12.0 (6-13) BUN 35 H (6-20) mg/dL Creatinine 0.7 (0.6-1.3) mg/dL Estimated GFR (MDRD) 114 (>89) Glucose 138 H (74-104) mg/dL Lactic Acid (0.5-2.2) mmol/L Calcium 8.5 (8.5-10.3) mg/dL Phosphorus (2.5-5.0) mg/dL Magnesium (1.7-2.3) mg/dL Total Bilirubin (0.2-1.0) mg/dL AST (10-42) IU/L ALT (10-60) IU/L Alkaline Phosphatase (42-121) IU/L Total Protein (6.4-8.9) g/dL Albumin (3.2-5.5) g/dL Globulin (2.1-4.2) g/dL Albumin/Globulin Ratio (1.0-2.2) Lipase (11-82) U/L Urine Color Urine Clarity (CLEAR) Urine pH (5.0-7.5) PH Ur Specific [place] (1.002-1.030) Urine Protein (NEGATIVE) mg/dL Urine Glucose (UA) (NEGATIVE) mg/dL Urine Ketones (NEGATIVE) mg/dL Urine Occult Blood (NEGATIVE) Urine Nitrite (NEGATIVE) Urine Bilirubin (NEGATIVE) Urine Urobilinogen (NORMAL) E.U./dL Ur Leukocyte Esterase (NEGATIVE) Urine RBC (0-5) /HPF Urine WBC (0-3) /HPF Urine WBC Clumps Ur Squamous Epith Cells (<= Few) Urine Bacteria (None Seen) /HPF Urine Casts /LPF Ur Microscopic Review Urine Culture Comments Stl C. cayetanensis PCR (Not Detected) Stool Rotavirus A PCR (Not Detected) Stl Adenov F 40/41 PCR (Not Detected) Stool Astrovirus (PCR) (Not Detected) Stool Campylobacter PCR (Not Detected) Stl C. diff Tox B Gene (NEGATIVE) Stl C. diff Tox A/B PCR (Not Detected) Stool Cryptosporidium PCR (Not Detected) Stl Sh Tox Pr E STEC PCR (Not Detected) Stool E coli O157 PCR (Not Detected) Stl Enterotoxigenic E PCR (Not Detected) Stool EPEC (PCR) (Not Detected) Stl E. histolytica PCR (Not Detected) Stool Giardia Lamblia PCR (Not Detected) Stl P. shigelloides PCR (Not Detected) Stool Salmonella PCR (Not Detected) Stool Sapovirus (PCR) (Not Detected) Stl Shigella/EIEC PCR (Not Detected) St Y.enterocolitica PCR (Not Detected) Stool Vibrio (PCR) (Not Detected) Stl Vibrio cholerae PCR (Not Detected) Stl Enteroaggr Ecoli PCR (Not Detected) Stl Norovirus GI/GII PCR (Not Detected) 10/30/24 10/30/24 10/30/24 Range/Units 20:39 19:10 16:50 WBC (4.8-10.8) x10^3/uL RBC (4.70-6.10) 10^6/uL Hgb (14.0-18.0) g/dL Hct (42.0-52.0) % MCV (80.0-94.0) fL MCH (27.0-31.0) pg MCHC (32.0-36.0) g/dL RDW (12.0-15.0) % Plt Count (130-450) 10^3/uL MPV (7.4-11.4) fL Neut # (Auto) Lymph # (Auto) Kendall # (Auto) Eos # (Auto) Baso # (Auto) Absolute Nucleated RBC Total Counted Band Neuts % (Manual) (0 - 10) % Reactive Lymphs % (Man) % Abnorm Lymph % (Manual) % Nucleated RBC % Neutrophils # (Manual) (1.5-6.6) 10^3/uL Lymphocytes # (Manual) (1.5-3.5) 10^3/uL Monocytes # (Manual) (0.0-1.0) 10^3/uL Eosinophils # (Manual) (0-0.7) 10^3/uL Basophils # (Manual) (0-0.1) 10^3/uL Differential Comment WBC Morphology (NORMAL) Platelet Estimate (NORMAL) Platelet Morphology (NORMAL) RBC Morph Micro Appear (NORMAL) Sodium (135-145) mmol/L Potassium (3.5-4.5) mmol/L Chloride (101-111) mmol/L Carbon Dioxide (21-32) mmol/L Anion Gap (6-13) BUN (6-20) mg/dL Creatinine (0.6-1.3) mg/dL Estimated GFR (MDRD) (>89) Glucose (74-104) mg/dL Lactic Acid 1.5 (0.5-2.2) mmol/L Calcium (8.5-10.3) mg/dL Phosphorus (2.5-5.0) mg/dL Magnesium (1.7-2.3) mg/dL Total Bilirubin (0.2-1.0) mg/dL AST (10-42) IU/L ALT (10-60) IU/L Alkaline Phosphatase (42-121) IU/L Total Protein (6.4-8.9) g/dL Albumin (3.2-5.5) g/dL Globulin (2.1-4.2) g/dL Albumin/Globulin Ratio (1.0-2.2) Lipase (11-82) U/L Urine Color DARK YELLOW Urine Clarity CLEAR (CLEAR) Urine pH 6.0 (5.0-7.5) PH Ur Specific [place] 1.025 (1.002-1.030) Urine Protein 30 H (NEGATIVE) mg/dL Urine Glucose (UA) NEGATIVE (NEGATIVE) mg/dL Urine Ketones 15 H (NEGATIVE) mg/dL Urine Occult Blood NEGATIVE (NEGATIVE) Urine Nitrite NEGATIVE (NEGATIVE) Urine Bilirubin SMALL H (NEGATIVE) Urine Urobilinogen 0.2 (NORMAL) (NORMAL) E.U./dL Ur Leukocyte Esterase NEGATIVE (NEGATIVE) Urine RBC None Seen (0-5) /HPF Urine WBC 6-10 H (0-3) /HPF Urine WBC Clumps PRESENT Ur Squamous Epith Cells FEW Squamous (<= Few) Urine Bacteria Rare (None Seen) /HPF Urine Casts 26-50 Hyaline Casts /LPF Ur Microscopic Review INDICATED Urine Culture Comments NOT INDICATED Stl C. cayetanensis PCR Not Detected (Not Detected) Stool Rotavirus A PCR Not Detected (Not Detected) Stl Adenov F 40/41 PCR Not Detected (Not Detected) Stool Astrovirus (PCR) Not Detected (Not Detected) Stool Campylobacter PCR Not Detected (Not Detected) Stl C. diff Tox B Gene (NEGATIVE) Stl C. diff Tox A/B PCR Not Detected (Not Detected) Stool Cryptosporidium PCR Not Detected (Not Detected) Stl Sh Tox Pr E STEC PCR Not Detected (Not Detected) Stool E coli O157 PCR Not applicable (Not Detected) Stl Enterotoxigenic E PCR Not Detected (Not Detected) Stool EPEC (PCR) Not Detected (Not Detected) Stl E. histolytica PCR Not Detected (Not Detected) Stool Giardia Lamblia PCR Not Detected (Not Detected) Stl P. shigelloides PCR Not Detected (Not Detected) Stool Salmonella PCR Not Detected (Not Detected) Stool Sapovirus (PCR) Not Detected (Not Detected) Stl Shigella/EIEC PCR Not Detected (Not Detected) St Y.enterocolitica PCR Not Detected (Not Detected) Stool Vibrio (PCR) Not Detected (Not Detected) Stl Vibrio cholerae PCR Not Detected (Not Detected) Stl Enteroaggr Ecoli PCR Not Detected (Not Detected) Stl Norovirus GI/GII PCR Not Detected (Not Detected) 10/30/24 10/30/24 Range/Units 16:40 14:35 WBC 14.4 H (4.8-10.8) x10^3/uL RBC 5.67 (4.70-6.10) 10^6/uL Hgb 15.9 (14.0-18.0) g/dL Hct 44.7 (42.0-52.0) % MCV 78.8 L (80.0-94.0) fL MCH 28.0 (27.0-31.0) pg MCHC 35.6 (32.0-36.0) g/dL RDW 13.0 (12.0-15.0) % Plt Count 451 H (130-450) 10^3/uL MPV 8.1 (7.4-11.4) fL Neut # (Auto) Not Reportable Lymph # (Auto) Not Reportable Kendall # (Auto) Not Reportable Eos # (Auto) Not Reportable Baso # (Auto) Not Reportable Absolute Nucleated RBC Not Reportable Total Counted 100 Band Neuts % (Manual) 0 (0 - 10) % Reactive Lymphs % (Man) 2 % Abnorm Lymph % (Manual) 0 % Nucleated RBC % Not Reportable Neutrophils # (Manual) 11.1 H (1.5-6.6) 10^3/uL Lymphocytes # (Manual) 1.9 (1.5-3.5) 10^3/uL Monocytes # (Manual) 1.4 H (0.0-1.0) 10^3/uL Eosinophils # (Manual) 0.0 (0-0.7) 10^3/uL Basophils # (Manual) 0.0 (0-0.1) 10^3/uL Differential Comment MANUAL DIFFERENTIAL WBC Morphology (NORMAL) Platelet Estimate NORMAL (130-450,000) (NORMAL) Platelet Morphology NORMAL APPEARANCE (NORMAL) RBC Morph Micro Appear NORMAL APPEARANCE (NORMAL) Sodium 123 L (135-145) mmol/L Potassium 4.1 (3.5-4.5) mmol/L Chloride 93 L (101-111) mmol/L Carbon Dioxide 19 L (21-32) mmol/L Anion Gap 11.0 (6-13) BUN 38 H (6-20) mg/dL Creatinine 1.0 (0.6-1.3) mg/dL Estimated GFR (MDRD) 75 L (>89) Glucose 161 H (74-104) mg/dL Lactic Acid (0.5-2.2) mmol/L Calcium 9.3 (8.5-10.3) mg/dL Phosphorus 4.8 (2.5-5.0) mg/dL Magnesium 2.2 (1.7-2.3) mg/dL Total Bilirubin 0.7 (0.2-1.0) mg/dL AST 15 (10-42) IU/L ALT 21 (10-60) IU/L Alkaline Phosphatase 64 (42-121) IU/L Total Protein 7.7 (6.4-8.9) g/dL Albumin 4.7 (3.2-5.5) g/dL Globulin 3.0 (2.1-4.2) g/dL Albumin/Globulin Ratio 1.6 (1.0-2.2) Lipase 279 H (11-82) U/L Urine Color Urine Clarity (CLEAR) Urine pH (5.0-7.5) PH Ur Specific [place] (1.002-1.030) Urine Protein (NEGATIVE) mg/dL Urine Glucose (UA) (NEGATIVE) mg/dL Urine Ketones (NEGATIVE) mg/dL Urine Occult Blood (NEGATIVE) Urine Nitrite (NEGATIVE) Urine Bilirubin (NEGATIVE) Urine Urobilinogen (NORMAL) E.U./dL Ur Leukocyte Esterase (NEGATIVE) Urine RBC (0-5) /HPF Urine WBC (0-3) /HPF Urine WBC Clumps Ur Squamous Epith Cells (<= Few) Urine Bacteria (None Seen) /HPF Urine Casts /LPF Ur Microscopic Review Urine Culture Comments Stl C. cayetanensis PCR (Not Detected) Stool Rotavirus A PCR (Not Detected) Stl Adenov F 40/41 PCR (Not Detected) Stool Astrovirus (PCR) (Not Detected) Stool Campylobacter PCR (Not Detected) Stl C. diff Tox B Gene NEGATIVE (NEGATIVE) Stl C. diff Tox A/B PCR (Not Detected) Stool Cryptosporidium PCR (Not Detected) Stl Sh Tox Pr E STEC PCR (Not Detected) Stool E coli O157 PCR (Not Detected) Stl Enterotoxigenic E PCR (Not Detected) Stool EPEC (PCR) (Not Detected) Stl E. histolytica PCR (Not Detected) Stool Giardia Lamblia PCR (Not Detected) Stl P. shigelloides PCR (Not Detected) Stool Salmonella PCR (Not Detected) Stool Sapovirus (PCR) (Not Detected) Stl Shigella/EIEC PCR (Not Detected) St Y.enterocolitica PCR (Not Detected) Stool Vibrio (PCR) (Not Detected) Stl Vibrio cholerae PCR (Not Detected) Stl Enteroaggr Ecoli PCR (Not Detected) Stl Norovirus GI/GII PCR (Not Detected) Assessment/Plan Problem List (1) Acute hyponatremia: Impression: Hyponatremia secondary to GI losses His sodium is slowly improving, this afternoon he was up to 126 I have added 2 g salt tabs twice daily and I have increased his saline to 200 an hour Continue every 4 hours sodium checks until greater than 130 (2) Diarrhea: Impression: At this point, presumed secondary to his cancer regimen C. difficile, stool PCR panel negative CT abdomen with some gallbladder distention, ordered ultrasound to further evaluate Elevated lipase, CT without concern for pancreatitis Started PRN imodium (3) Melanoma: Impression: Established with Dr. Kaylene Lowery at [facility] Had PET scan a month ago, does not know the results yet Requested records from [place]
[2024-10-31] MEDS ORDERED: BUDESONIDE 0.5 MG/2 ML NEB INH PRN (14:23)
--- NOTE | 2024-10-31 17:17 | Ultrasound Report ---
PROCEDURE: US Abdomen Limited INDICATIONS: Distended GB on CT TECHNIQUE: Real-time focused scanning was performed of the abdomen, with image documentation. COMPARISONS: CT abdomen and pelvis dated 10/30/2024. FINDINGS: Liver: Increased liver echogenicity, commonly mild hepatic steatosis. Gallbladder: Gallbladder is moderately distended measuring 8.8 x 6.6 x 6.1 cm in size. There is mild wall thickening measuring 4 mm in thickness. There is layering echogenic material internally. No echogenic gallstone visualized. No pericholecystic fluid. No sonographic Ridley's sign elicited. Biliary ducts: Intrahepatic bile ducts are non-dilated. Extrahepatic bile duct caliber measures 4 mm. Normal is 6-7 mm or less in diameter, or 10 mm or less post-cholecystectomy. Pancreas: Not well visualized due to overlying bowel gas. Right kidney: Normal in size and echotexture. Right kidney measures 12.4 cm long. No hydronephrosis or nephrolithiasis. No solid masses. No complex renal cystic lesions which require follow-up. IVC: Intrahepatic inferior vena cava is patent. Miscellaneous: No free abdominal fluid. IMPRESSION: Moderately distended gallbladder with layering sludge and mild wall thickening. Findings may be related to acalculous cholecystitis although no other symptoms of acute cholecystitis noted sonographically. Other etiologies may include hypoalbuminemia, cirrhosis, CHF, or acute hepatitis/pancreatitis. Hepatic steatosis. Reviewed by: Roderick Beach MD on 10/31/2024 5:15 PM PDT Approved by: Roderick Beach MD on 10/31/2024 5:15 PM PDT Station ID: [id number]
[2024-10-31] MEDS: LOPERAMIDE 2 MG CAPSULE PO PRN (18:26)
[2024-10-31] MEDS: lisinopriL 20 MG TABLET PO SCH (20:27)
[2024-10-31] MEDS: hydroCHLOROthiazide 12.5 MG CAPSULE PO SCH (20:27)
[2024-10-31] MEDS: ATORVASTATIN 10 MG TABLET PO SCH (21:25)
[2024-11-01 05:44] LABS: BASOPHILS % (AUTO) 0.3 %; EOSINOPHILS % (AUTO) 0.6 %; HCT - HEMATOCRIT 35.2 % (42.0-52.0); HGB - HEMOGLOBIN 12.5 g/dL (14.0-18.0); LYMPHOCYTES % (AUTO) 11.8 %; MEAN CORPUSCULAR HEMOGLOBIN 27.8 pg (27.0-31.0); MEAN CORPUSCULAR HGB CONC 35.5 g/dL (32.0-36.0); MEAN CORPUSCULAR VOLUME 78.2 fL (80.0-94.0); MEAN PLATELET VOLUME 8.3 fL (7.4-11.4); MONOCYTES % (AUTO) 8.1 %; PLT - PLATELET COUNT 330 10^3/uL (130-450); RED CELL DISTRIBUTION WIDTH 13.2 % (12.0-15.0); WHITE BLOOD COUNT 10.8 x10^3/uL (4.8-10.8)
[2024-11-01 05:55] LABS: ABNORMAL LYMPHS % (MANUAL) 0 %
[2024-11-01 06:02] LABS: CREATININE 0.6 mg/dL (0.6-1.3); POTASSIUM 2.9 mmol/L (3.5-4.5)
[2024-11-01 06:49] LABS: BAND NEUTROPHILS % (MANUAL) 6 %; EOSINOPHILS # (MANUAL) 0.2 10^3/uL (0-0.7); LYMPHOCYTES # (MANUAL) 2.4 10^3/uL (1.5-3.5); LYMPHOCYTES % (MANUAL) 22 %; NEUTROPHILS # (MANUAL) 8.2 10^3/uL (1.5-6.6)
[2024-11-01 06:50] LABS: DIFFERENTIAL COMMENT MANUAL DIFFERENTIAL; PLATELET ESTIMATE, MANUAL NORMAL (130-450,000) (NORMAL); PLATELET MORPHOLOGY NORMAL APPEARANCE (NORMAL); RBC MORPHOLOGY (MULTIPLE) NORMAL APPEARANCE (NORMAL); WBC MORPHOLOGY (MULTIPLE) NORMAL APPEARANCE (NORMAL)
[2024-11-01 09:47] LABS: MAGNESIUM 1.9 mg/dL (1.7-2.3); PHOSPHORUS 2.6 mg/dL (2.5-5.0)
[2024-11-01] MEDS: MULTIVITAMIN TABLET PO SCH (09:51)
[2024-11-01] MEDS: FLUTICASONE NASAL SPRAY NAS SCH (09:55)
[2024-11-01] MEDS: POTASSIUM CHLOR 10 MEQ/100 ML 10 MEQ/100 ML BAG IV SCH ×2 (10:02→11:41)
[2024-11-01] MEDS: POTASSIUM CHLORIDE 20 MEQ TABLET PO ONE ×2 (11:05→11:08)
--- NOTE | 2024-11-01 12:34 | PROVIDER PROGRESS NOTE ---
Subjective Prog Note Date Prog Note Date: 11/01/24 Subjective Pt reports feeling: No change Current Medications Current Medications Current Medications: Current Medications Generic Name Dose Route Start Last Admin Trade Name Freq PRN Reason Stop Dose Admin Acetaminophen 650 mg 10/30/24 20:52 10/31/24 21:26 Acetaminophen 325 Mg Tablet PO 650 mg Q4HR PRN Administration Pain 1 to 4, or Fever Atorvastatin Calcium 20 mg 10/31/24 21:00 10/31/24 21:25 Atorvastatin 10 Mg Tablet PO 20 mg QPM BETHANY Administration Budesonide 0.5 mg 10/31/24 14:23 Budesonide 0.5 Mg/2 Ml Neb INH BID PRN Shortness of Air/Wheezing Enoxaparin Sodium 40 mg 10/31/24 09:00 11/01/24 09:51 Enoxaparin 40 Mg/0.4 Ml Syringe SUBQ 40 mg DAILY BETHANY Administration Fluticasone Propionate 2 sprays 11/01/24 09:00 11/01/24 09:55 Fluticasone Nasal [place] ELIJAH Not Given DAILY BETHANY Gabapentin 300 mg 10/30/24 23:00 10/31/24 21:26 Gabapentin 300 Mg Capsule PO 300 mg QPM BETHANY Administration Hydrochlorothiazide 12.5 mg 10/31/24 21:00 11/01/24 09:51 Hydrochlorothiazide 12.5 Mg Capsule PO 12.5 mg BID BETHANY Administration Sodium Chloride 1,000 mls @ 150 mls/hr 10/30/24 21:00 11/01/24 10:30 Normal Saline 0.9% IV 150 mls/hr .Q6H40M BETHANY Administration Potassium Chloride 10 meq in 100 mls @ 65 mls/hr 11/01/24 12:00 11/01/24 11:41 Potassium Chloride IV 11/01/24 16:29 65 mls/hr Q90M BETHANY Administration Lisinopril 20 mg 10/31/24 21:00 11/01/24 09:51 Lisinopril 20 Mg Tablet PO 20 mg BID BETHANY Administration Loperamide HCl 2 mg 10/31/24 16:42 11/01/24 00:18 Loperamide 2 Mg Capsule PO 2 mg QID PRN Administration Diarrhea Multivitamins 1 tab 11/01/24 08:00 11/01/24 09:51 Multivitamin Tablet PO 1 tab DAILYWM BETHANY Administration Ondansetron HCl 4 mg 10/30/24 20:52 Ondansetron Odt 4 Mg Tablet TL Q6HR PRN Nausea / Vomiting Ondansetron HCl 4 mg 10/30/24 20:52 Ondansetron 4 Mg/2 Ml Vial IVP Q6HR PRN Nausea / Vomiting Prednisone 80 mg 11/01/24 13:00 Prednisone 20 Mg Tablet PO DAILYWM BETHANY Sodium Chloride 10 ml 10/30/24 20:52 Sodium Chloride Flush 0.9% 10 Ml Syringe IVP PRN PRN NEEDED PER PROVIDER ORDERS Sodium Chloride 10 ml 10/31/24 01:00 11/01/24 09:52 Sodium Chloride Flush 0.9% 10 Ml Syringe IVP 10 ml 0100,0900,1700 BETHANY Administration Sodium Chloride 2 gm 10/31/24 10:00 11/01/24 09:51 Sodium Chloride 1 Gm Tablet PO 2 gm BID BETHANY Administration Objective Vital Signs/Intake & Output Reviewed Vital Signs: Yes Vital Signs: Vital Signs x48h Temp Pulse Resp BP Pulse Ox 11/01/24 08:51 36.9 C 93 18 156/84 H 97 11/01/24 05:00 36.7 C 88 18 146/84 H 99 Intake & Output: Intake & Output 10/29/24 10/30/24 10/31/24 11/01/24 23:59 23:59 23:59 23:59 Intake Total 642 / 642 3054 / 3054 2350 / 2350 Balance 642 / 642 3054 / 3054 2350 / 2350 Weight (kg) 89 kg Objective General Appearance: positive No acute distress and Alert Eyes Bilateral: positive Normal inspection, PERRL and Conjunctivae nml ENT: positive ENT inspection nml Neck: positive Nml inspection Respiratory: positive Chest non-tender and No respiratory distress Cardiovascular: positive Regular rate & rhythm Abdomen: positive Non-tender Skin: positive Color nml Extremities: positive Non-tender Neurologic/Psychiatric: positive Oriented x3 Lab Results 11/01/24 05:07 11/01/24 09:51 Other Labs: Lab Results x24hrs 11/01/24 11/01/24 11/01/24 Range/Units 09:51 05:07 01:35 WBC 10.8 (4.8-10.8) x10^3/uL RBC 4.50 L (4.70-6.10) 10^6/uL Hgb 12.5 L (14.0-18.0) g/dL Hct 35.2 L (42.0-52.0) % MCV 78.2 L (80.0-94.0) fL MCH 27.8 (27.0-31.0) pg MCHC 35.5 (32.0-36.0) g/dL RDW 13.2 (12.0-15.0) % Plt Count 330 (130-450) 10^3/uL MPV 8.3 (7.4-11.4) fL Neut # (Auto) Not Reportable Lymph # (Auto) Not Reportable [place] # (Auto) Not Reportable Eos # (Auto) Not Reportable Baso # (Auto) Not Reportable Absolute Nucleated RBC Not Reportable Total Counted 100 Band Neuts % (Manual) 6 (0 - 10) % Abnorm Lymph % (Manual) 0 % Nucleated RBC % Not Reportable Neutrophils # (Manual) 8.2 H (1.5-6.6) 10^3/uL Lymphocytes # (Manual) 2.4 (1.5-3.5) 10^3/uL Monocytes # (Manual) 0.0 (0.0-1.0) 10^3/uL Eosinophils # (Manual) 0.2 (0-0.7) 10^3/uL Basophils # (Manual) 0.0 (0-0.1) 10^3/uL Differential Comment MANUAL DIFFERENTIAL WBC Morphology NORMAL APPEARANCE (NORMAL) Platelet Estimate NORMAL (130-450,000) (NORMAL) Platelet Morphology NORMAL APPEARANCE (NORMAL) RBC Morph Micro Appear NORMAL APPEARANCE (NORMAL) Sodium 130 L 127 L 129 L (135-145) mmol/L Potassium 2.9 L (3.5-4.5) mmol/L Chloride 102 (101-111) mmol/L Carbon Dioxide 17 L (21-32) mmol/L Anion Gap 8.0 (6-13) BUN 19 (6-20) mg/dL Creatinine 0.6 (0.6-1.3) mg/dL Estimated GFR (MDRD) 136 (>89) Glucose 122 H (74-104) mg/dL Calcium 8.0 L (8.5-10.3) mg/dL Phosphorus 2.6 (2.5-5.0) mg/dL Magnesium 1.9 (1.7-2.3) mg/dL 10/31/24 10/31/24 10/31/24 Range/Units 21:20 17:22 13:10 WBC (4.8-10.8) x10^3/uL RBC (4.70-6.10) 10^6/uL Hgb (14.0-18.0) g/dL Hct (42.0-52.0) % MCV (80.0-94.0) fL MCH (27.0-31.0) pg MCHC (32.0-36.0) g/dL RDW (12.0-15.0) % Plt Count (130-450) 10^3/uL MPV (7.4-11.4) fL Neut # (Auto) Lymph # (Auto) [place] # (Auto) Eos # (Auto) Baso # (Auto) Absolute Nucleated RBC Total Counted Band Neuts % (Manual) (0 - 10) % Abnorm Lymph % (Manual) % Nucleated RBC % Neutrophils # (Manual) (1.5-6.6) 10^3/uL Lymphocytes # (Manual) (1.5-3.5) 10^3/uL Monocytes # (Manual) (0.0-1.0) 10^3/uL Eosinophils # (Manual) (0-0.7) 10^3/uL Basophils # (Manual) (0-0.1) 10^3/uL Differential Comment WBC Morphology (NORMAL) Platelet Estimate (NORMAL) Platelet Morphology (NORMAL) RBC Morph Micro Appear (NORMAL) Sodium 128 L 127 L 126 L (135-145) mmol/L Potassium (3.5-4.5) mmol/L Chloride (101-111) mmol/L Carbon Dioxide (21-32) mmol/L Anion Gap (6-13) BUN (6-20) mg/dL Creatinine (0.6-1.3) mg/dL Estimated GFR (MDRD) (>89) Glucose (74-104) mg/dL Calcium (8.5-10.3) mg/dL Phosphorus (2.5-5.0) mg/dL Magnesium (1.7-2.3) mg/dL Assessment/Plan Problem List (1) Acute hyponatremia: Impression: Hyponatremia secondary to GI losses His sodium is slowly improving, this afternoon he was up to 126 I have added 2 g salt tabs twice daily and I have increased his saline to 200 an hour Continue every 4 hours sodium checks until greater than 130 11/01/2024: Sodium is now 130. I am de-escalating his sodium checks. He continues to have diarrhea which has not changed from yesterday (2) Diarrhea: Impression: At this point, presumed secondary to his cancer regimen C. difficile, stool PCR panel negative CT abdomen with some gallbladder distention, ordered ultrasound to further evaluate Elevated lipase, CT without concern for pancreatitis Started PRN imodium 08/01/2024: Imodium ineffective. I got records from his oncologist, reporting that he is on Opdivo and Shailesh, C3 D1 on 530. Diarrhea is a common side effect and given his need for hospitalization this qualifies as at the very least a grade 3 complication from his treatment. I am starting him on prednisone 80 mg daily and we will be holding him for another night. If I discharged him now, he will continue to have GI losses and worsening electrolytes (3) Melanoma: Impression: Established with Dr. Kaylene Lowery at [facility] Had PET scan a month ago, does not know the results yet Requested records from [place] 11/01/2024: Records obtained. He received up Fredy and Shailesh C3 D1 on 10/19. Steroids as above
[2024-11-01] MEDS: predniSONE 20 MG TABLET PO SCH (13:39)
[2024-11-02 06:03] LABS: BASOPHILS % (AUTO) 0.5 %; HCT - HEMATOCRIT 33.4 % (42.0-52.0); HGB - HEMOGLOBIN 11.2 g/dL (14.0-18.0); LYMPHOCYTES % (AUTO) 12.2 %; MEAN CORPUSCULAR HEMOGLOBIN 27.5 pg (27.0-31.0); MEAN CORPUSCULAR HGB CONC 33.5 g/dL (32.0-36.0); MEAN CORPUSCULAR VOLUME 81.9 fL (80.0-94.0); MEAN PLATELET VOLUME 8.2 fL (7.4-11.4); MONOCYTES # (AUTO) 0.5 10^3/uL (0.0-1.0); MONOCYTES % (AUTO) 6.2 %; NEUTROPHILS # (AUTO) 6.6 10^3/uL (1.5-6.6); NEUTROPHILS % (AUTO) 77.8 %; PLT - PLATELET COUNT 304 10^3/uL (130-450); RED BLOOD COUNT 4.08 10^6/uL (4.70-6.10); RED CELL DISTRIBUTION WIDTH 13.7 % (12.0-15.0); WHITE BLOOD COUNT 8.4 x10^3/uL (4.8-10.8)
[2024-11-02 06:22] LABS: CALCIUM 8.1 mg/dL (8.5-10.3); CREATININE 0.6 mg/dL (0.6-1.3); POTASSIUM 3.3 mmol/L (3.5-4.5)
[2024-11-02 08:22] VITALS: TEMP 98.1
--- NOTE | 2024-11-02 14:25 | Discharge Summary ---
"Discharge Summary Admit Date: 10/30/24 Discharge Date: 11/02/24 Discharging Provider: Saranya Yeh PA-C Primary Care Provider: Kathleen Small PA-C Code Status: Attempt Resuscitation DIAGNOSES Discharge Diagnoses with Status of Each Condition: Acute hyponatremia, resolved. Diarrhea, resolved. Melanoma. HPI History of Present Illness: 64-year-old male with history of melanoma undergoing immunologic therapy with last dose 3 weeks ago presents with diarrhea x 2 weeks. He reports intermittent cramping and greater than 10 pound weight loss in the past few weeks. He denies nausea/vomiting. No fevers, chills, dyspnea, syncope. Does report generalized weakness. In the ER, lab work was significant for sodium of 123, WBC 14.4, lipase 279. UA unremarkable, C. difficile toxin negative. CT abdomen/pelvis was performed which showed diarrhea, but no small bowel obstruction, no free fluid, no free air, kidney stones, hydronephrosis. It did show a distended gallbladder, But does not specify cholecystitis. No pancreatic ductal dilation and no peripancreatic fluid collection. Patient denies right upper quadrant abdominal pain. Hospitalist was contacted for admission for hyponatremia secondary to diarrhea CONSULTS | PROCEDURES Procedures: CT abdomen pelvis: Liquid stool contents in the colon and rectum. No small bowel obstruction. No free fluid or free air. No kidney stones. No hydronephrosis. Distended gallbladder. Abdominal ultrasound: Moderately distended gallbladder with layering sludge and mild wall thickening. Findings may be related to acalculous cholecystitis although no other symptoms of acute cholecystitis noted sonographically. Other etiologies may include hypoalbuminemia, cirrhosis, CHF or acute hepatitis/pancreatitis. Hepatic steatosis. HOSPITAL COURSE Hospital Course: (1) Acute hyponatremia: Hyponatremia secondary to GI losses Laboratory Tests 10/30/24 10/31/24 10/31/24 14:35 04:08 09:22 Sodium 123 L 124 L 125 L 10/31/24 10/31/24 10/31/24 13:10 17:22 21:20 Sodium 126 L 127 L 128 L 11/01/24 11/01/24 11/01/24 01:35 05:07 09:51 Sodium 129 L 127 L 130 L 11/02/24 05:48 Sodium 134 L Discharged home on sodium tabs twice a day. Recommended repeat sodium check via PCP within the next week. (2) Diarrhea: At this point, presumed secondary to his cancer regimen C. difficile, stool PCR panel negative CT abdomen with some gallbladder distention. Right upper quadrant ultrasound not remarkable Elevated lipase, CT without concern for pancreatitis Started PRN imodium I got records from his oncologist, reporting that he is on Opdivo and Yervoy, C3 D1 on 530. Diarrhea is a common side effect and given his need for hospitalization this qualifies as at the very least a grade 3 complication from his treatment. I am starting him on prednisone 80 mg daily . And will taper down slowly with instructions to follow-up with his oncology team. He feels back to normal and is requesting to go home. he is tolerating a diet. (3) Melanoma: Established with Dr. Kaylene Lowery at [facility] Had PET scan a month ago, does not know the results yet He received up Fredy and Yervoy C3 D1 on 10/19. Steroids as above. His diarrhea has resolved on the prednisone. ALLERGIES Allergies Allergy/AdvReac Type Severity Reaction Status Date / Time atenolol Allergy Intermediate Respiratory Verified 10/31/24 11:28 Gadolinium-Containing Allergy Intermediate Hives Verified 10/31/24 11:28 Contrast Medi Sulfa (Sulfonamide Allergy Mild Rash Verified 10/31/24 11:28 Antibiotics) MEDICATIONS Ambulatory Orders Medication Instructions Recorded Confirmed acetaminophen 500 mg tablet 500 mg PO PRN 10/31/2404/16 (Tylenol Extra Strength) albuterol sulfate 90 mcg/actuation 2 inh inhalation Q4 -6H PRN 10/31/24 10/31/24 aerosol inhaler (Ventolin HFA) shortness of breath or wheezing beclomethasone dipropionate 40 1 inh inhalation BID SC N shortness 10/31/24 10/31/24 mcg/actuation HFA breath activated of breath or wheezi ng aerosol (Qvar RediHaler) fluticasone propionate 50 4 spray intranasal DAILY 04/1610/31/24 mcg/actuation nasal spray,suspension gabapentin 300 mg capsule 300 mg PO QPM 10/31/2410/31 lisinopril 20 1 tab PO BID 10/31/24 mg-hydrochlorothiazide 12.5 mg tablet multivitamin 1 tab PO BID 10/31/24 omega-3 fatty acids 500 mg PO DAILY 10/31/2404/16 ondansetron 4 mg disintegrating 4 - 8 mg PO Q8H PRN na usea and 10/31/24 10/31/24 tablet vomiting rosuvastatin 10 mg tablet 10 mg PO QPM 10/31/24 tadalafil 2.5 mg tablet 2.5 mg PO DAILY PRN sexual a ctivity 10/31/24 10/31/24 vitamin K2 40 mcg tablet 40 mcg PO DAILY 10/31/2404/16 loperamide 2 mg capsule 2 mg PO QID PRN Diarrhea #30 caps 11/02/24 prednisone 20 mg tablet See Rx Instructions .Route 0 11/02/24 .COMPLEX #30 tabs sodium chloride 1,000 mg soluble 2,000 mg (2 x 1,000 m g) PO BID 11/02/24 tablet #120 tabs PHYSICAL EXAM AT DISCHARGE Vital Signs: Vital Signs x48h Temp Pulse Resp BP Pulse Ox 11/02/24 13:00 36.7 C 87 20 140/78 H 99 Physical Exam Other/Comments: General Appearance: positive No acute distress and Alert Eyes Bilateral: positive Normal inspection, PERRL and Conjunctivae nml ENT: positive ENT inspection nml Neck: positive Nml inspection Respiratory: positive Chest non-tender and No respiratory distress Cardiovascular: positive Regular rate & rhythm Abdomen: positive Non-tender Skin: positive Color nml Extremities: positive Non-tender Neurologic/Psychiatric: positive Oriented x3 LABS 11/02/24 05:48 11/02/24 05:48 FOLLOW UP Follow Up: PCP within the week. next oncology followup about 5 weeks out, recommend phoning team to check in with this. TIME SPENT Time Spent in Discharge (Minutes): 35 Discharge Plan Discharge Patient Disposition: Home, Self Care Condition: Stable Prescriptions: New loperamide 2 mg Capsule 2 mg PO QID PRN (Reason: Diarrhea) Qty: 30 0RF prednisone 20 mg Tablet See Rx Instructions .ROUTE .COMPLEX Qty: 30 0RF Rx Instructions: 4 tabs for 2 days, 3 tabs for 3 days, 2 tabs for 3 days, one tab for 3 days, 1/2 tab for 3 days. sodium chloride 1,000 mg Tablet,Soluble 2,000 mg PO BID Qty: 120 0RF Continued lisinopril-hydrochlorothiazide 20-12.5 mg tablet 1 tab PO BID gabapentin 300 mg capsule 300 mg PO QPM Patient Comments: TAKE 1 CAPSULE BY MOUTH AT BEDTIME ondansetron 4 mg tablet,disintegrating 4 - 8 mg PO Q8H PRN (Reason: nausea and vomiting) rosuvastatin 10 mg tablet 10 mg PO QPM Qvar RediHaler 40 mcg/actuation HFA aerosol breath activated 1 inh INHALATION BID PRN (Reason: shortness of breath or wheezing) tadalafil 2.5 mg tablet 2.5 mg PO DAILY PRN (Reason: sexual activity) Patient Comments: TAKE 1-2 TABLETS BY MOUTH DAILY acetaminophen [Tylenol Extra Strength] 500 mg tablet 500 mg PO PRN vitamin K2 40 mcg tablet 40 mcg PO DAILY omega-3 fatty acids Capsule 500 mg PO DAILY albuterol sulfate [Ventolin HFA] 90 mcg/actuation HFA aerosol inhaler 2 inh inhalation Q4-6H PRN (Reason: shortness of breath or wheezing) fluticasone propionate 50 mcg/actuation spray,suspension 4 spray intranasal DAILY Rx Instructions: administer 2 sprays into each nostril multivitamin Tablet 1 tab PO BID Discontinued diphenoxylate-atropine 2.5-0.025 mg tablet 1 tab PO QID PRN (Reason: diarrhea) Patient Comments: TAKE 1 TABLET BY MOUTH FOUR TIMES DAILY NEEDED FOR DIARRHEA Diet: Regular Interventions: Belongings Inventory Last Done: 10/30/24 22:59 Discharge Last Done: 11/02/24 15:24 Discharge Checklist - Nursing Last Done: 11/02/24 15:24 Health Concerns: You came into the hospital with severe diarrhea. It was so bad that your sodium and potassium got low. To fix this, we needed to relieve the inflammation in your colon. I have placed you on Prednisone, and we will slowly taper it. take the prednisone in the morning, with food. it would be a really good idea to have blood work early next week. This will keep an eye on your electrolytes. sometimes the white blood cell count goes up on prednisone, so do not be alarmed if this happens. Best wishes to you as you get back to life, and come back if you need us!! Print Language: Occitan Patient Instructions: Loperamide Follow-up Care: KATHLEEN SMALL PA-C [Physician No Access] -"
[2024-11-02 15:18] VITALS: BP 140/78; O2SAT 99
== END 2024-11-02 15:25 | disposition home or self-care (01) ==
LOC: ED 13:14 → MS3 13:14
PROVIDERS: ADMIT Nurse Practitioner Acute Care; ATTEND Nurse Practitioner Acute Care
DX: K52.1 Toxic gastroenteritis and colitis; Z68.28 Body mass index [BMI] 28.0-28.9, adult; T45.1X5A Adverse effect of antineoplastic and immunosuppressive drugs, initial encounter; R53.1 Weakness; R63.4 Abnormal weight loss; C43.9 Malignant melanoma of skin, unspecified; E87.1 Hypo-osmolality and hyponatremia; I10 Essential (primary) hypertension; Z87.891 Personal history of nicotine dependence